=== PATIENT | female | born 1970 | race African-American/Black ===

== ENCOUNTER 2023-11-24 08:31 | Emergency (ER) | payer OTHER ==
[~2023-11-24] VITALS: Ht 167.6 cm; Wt 68.0 kg
[2023-11-24 08:33] VITALS: O2SAT 96
[2023-11-24 09:08] LABS: BASOPHILS % 0.7 % (0.0-2.0); EOSINOPHILS % 2.3 % (0.0-5.0); HEMATOCRIT. 38.1 % (36.0-48.0); HEMOGLOBIN. 12.3 g/dL (12.0-16.0); LYMPHOCYTES % 34.8 % (20.0-50.0); MEAN CORPUSCULAR HEMOGLOBIN 30.6 pg (28.0-32.0); MEAN CORPUSCULAR HGB CONC 32.4 g/dL (31.0-37.0); MEAN CORPUSCULAR VOLUME 94.5 fL (81.0-99.0); MEAN PLATELET VOLUME 8.7 fl (7.4-10.4); MONOCYTES % 5.9 % (2.0-8.0); NEUTROPHILS % 56.3 % (40.0-76.0); PLATELET 327 x1000/uL (130-400); RED BLOOD CELL COUNT 4.03 mill/uL (4.2-5.4); RED CELL DISTRIBUTION WIDTH 14.2 % (11.6-14.6); WHITE BLOOD COUNT 5.6 x1000/uL (4.5-11.0)
[2023-11-24 09:12] LABS: CLARITY URINE CLEAR (CLEAR); COLOR URINE YELLOW (YELLOW); GLUCOSE URINE NEGATIVE (NEGATIVE); KETONES URINE NEGATIVE (NEGATIVE); LEUKOCYTE ESTERASE URINE NEGATIVE (NEGATIVE); NITRITE URINE NEGATIVE (NEGATIVE); OCCULT BLOOD URINE NEGATIVE (NEGATIVE); PROTEIN URINE NEGATIVE (NEGATIVE); SPECIFIC GRAVITY URINE 1.023 (1.005-1.030)
[2023-11-24 09:20] LABS: PROTHROMBIN TIME 10.7 sec (9.6-11.0)
[2023-11-24 09:22] LABS: ALANINE AMINOTRANSFERASE 20 IU/L (10-49); ALBUMIN 4.6 g/dL (3.2-4.8); ASPARTATE AMINOTRANSFERASE 24 IU/L (<34); BILIRUBIN TOTAL 0.6 mg/dL (0.1-1.0); CALCIUM 9.1 mg/dL (8.7-10.4); CARBON DIOXIDE 28 mEq/L (21-32); CHLORIDE 103 mEq/L (98-107); CREATININE 0.9 mg/dL (0.6-1.0); GLUCOSE 114 mg/dL (70-105); POTASSIUM 4.5 mEq/L (3.5-5.1); PROTEIN TOTAL 8.6 g/dL (6.0-8.3); SODIUM 135 mEq/L (136-145); UREA NITROGEN BLOOD 17 mg/dL (9-23)
[2023-11-24 09:26] LABS: TROPONIN I HIGH SENSITIVITY < 4 ng/L (3.0-34)
[2023-11-24] MEDS ORDERED: KETOROLAC 60MG/2ML VIAL IM ONE ×2 (11:00→13:30)
[2023-11-24 11:43] LABS: TROPONIN I HIGH SENSITIVITY < 4 ng/L (3.0-34)
[2023-11-24] MEDS ORDERED: ESTR42.510 VG (13:31)
[2023-11-24] MEDS ORDERED: IBUP-2029 PO (13:31)
[2023-11-24] MEDS ORDERED: CYCL10TA21 PO (13:31)
[2023-11-24] MEDS: KETOROLAC 60MG/2ML VIAL IM NR (13:57)
[2023-11-24] MEDS ORDERED: FAMO20TA8 MT (17:48)
[2023-11-24] MEDS ORDERED: MAG-55 MT (17:49)
[2023-11-24 18:01] VITALS: BP 122/76; PULSE 89; RESP 18; TEMP 98.4
[2023-11-24] MEDS ORDERED: IOHEXOL-300 100 ML BOTTLE ONE (19:15)
[2023-11-25] MEDS ORDERED: IOHEXOL-350 100 ML BOTTLE ONE (15:09)
== END 2023-11-24 18:21 | disposition home or self-care (01) ==
LOC: ER 08:51
DX: R07.89 Other chest pain (principal); Z90.710 Acquired absence of both cervix and uterus; Z79.899 Other long term (current) drug therapy
CPT/HCPCS: 99285; 74174; 71275; 71045; 80053; 81003; 81025; 83690; 85025; 85379; 85610; 84484; 36415; 93005; 96372; Q9967 ×2; J1885